=== PATIENT | female | born 1960 | race Caucasian/White ===

== ENCOUNTER 2022-09-13 16:17 | Inpatient (IN) | payer MEDICAID, OTHER ==
[2022-09-13] MEDS ORDERED: Ipratropium/Albuterol 3 ML NEB NEB PRN (16:55)
[2022-09-13] MEDS ORDERED: Ondansetron PF 4 MG/2 ML Vial IVP PRN (16:55)
[2022-09-13] MEDS ORDERED: Dextrose 5% in Water 1,000 ML IV PRN (16:55)
[2022-09-13] MEDS ORDERED: Morphine 2 MG/ML VIAL SLOW IVP PRN (16:55)
[2022-09-13] MEDS ORDERED: Dextrose 50% Abboject 50 ML SYRINGE SLOW IVP PRN (16:55)
[2022-09-13 17:24] LABS: #Eosinphils 0.1 thou/uL (0.0-0.7); #Lymphocytes 1.6 thou/uL (1.20-3.40); #Monocytes 0.4 thou/uL (0.11-0.59); #Neutrophils 8.4 thou/uL (1.40-6.50); %Basophils 0.2 % (0.0-1.0); %Eosinophils 1.2 % (0.0-10.0); %Lymphocytes 15.5 % (21.0-51.0); %Monocytes 3.5 % (0.0-10.0); %Neutrophils 79.7 % (42.0-75.0); Hemoglobin 14.8 g/dL (12.0-16.0); Mean Corpuscular HGB CONC 33.2 g/dL (32.0-36.0); Mean Corpuscular Hemoglobin 30.3 pg (27.0-31.0); Mean Platelet Volume 10.5 fL (7.4-10.4); Platelet Count 134 10x3/uL (130-400); RBC Distribution Width 12.9 % (11.5-14.5); Red Blood Cell (RBC) Count 4.88 mill/uL (4.20-5.40); White Blood Cell (WBC) Count 10.5 10x3/uL (4.8-10.8)
[2022-09-13 17:37] LABS: INR-International Normal Ratio 0.9; Prothrombin Time 12.9 sec (12.0-14.7)
[2022-09-13 17:46] LABS: ALT (SGPT) 20 U/L (8-55); AST (SGOT) 11 U/L (5-34); Albumin 4.2 g/dL (3.4-4.8); Alkaline Phosphatase 91 U/L (40-110); Anion Gap 14 mmol/L (10-20); BUN (Urea Nitrogen) 20 mg/dL (9.8-20.1); Bilirubin, Total 0.4 mg/dL (0.2-1.2); Calc. Creatinine Clearance 0 mL/min (70-130); Calcium 9.2 mg/dL (7.8-10.44); Carbon Dioxide 22 mmol/L (23-31); Chloride 107 mmol/L (98-107); Estimated GFR 87; Globulin 2.7 g/dL (2.4-3.5); Glucose 256 mg/dL (80-115); Potassium 3.9 mmol/L (3.5-5.1); Protein, Total 6.9 g/dL (5.8-8.1); Sodium 139 mmol/L (136-145)
[2022-09-13] MEDS ORDERED: Metoprolol Tartrate 50 MG TAB PO SCH (18:30)
[2022-09-13] MEDS ORDERED: hydrALAZINE 20 MG/ML VIAL SLOW IVP PRN (18:30)
[2022-09-13] MEDS ORDERED: Ibuprofen 800 MG TAB PO PRN (18:35)
[2022-09-13] MEDS: Albuterol 200 PUFF (6.7GM INHALER) INH SCH (19:00)
[2022-09-13] MEDS: Sodium Chloride 0.9% 1,000 ML IV SCH (20:20)
[2022-09-13] MEDS: Famotidine/PF 20 mg/2ml Vial SLOW IVP SCH (23:14)
[2022-09-13] MEDS: Acetaminophen 500 MG TAB PO SCH (23:14)
[2022-09-13] MEDS: Cyclobenzaprine 10 MG TAB PO PRN (23:15)
[2022-09-13] MEDS: Senokot S 8.6-50 MG TAB PO SCH (23:15)
[2022-09-13] MEDS: HumaLOG 300 UNITS/3 ML VIAL SC PRN (23:18)
[2022-09-13 23:42] VITALS: BMI 33.6
[2022-09-14] MEDS: Ipratropium Bromide 0.06% Nasal Inhaler 15ml EA NARE SCH ×3 (01:04→17:42)
[2022-09-14] MEDS: Acetaminophen 500 MG TAB PO SCH ×4 (01:05→17:32)
[2022-09-14] MEDS: Sodium Chloride 0.9% 1,000 ML IV SCH ×3 (03:26→17:42)
[2022-09-14 06:05] LABS: #Eosinphils 0.1 thou/uL (0.0-0.7); #Lymphocytes 1.7 thou/uL (1.20-3.40); #Monocytes 0.6 thou/uL (0.11-0.59); #Neutrophils 4.6 thou/uL (1.40-6.50); %Basophils 0.2 % (0.0-1.0); %Eosinophils 0.8 % (0.0-10.0); %Lymphocytes 23.9 % (21.0-51.0); %Monocytes 8.3 % (0.0-10.0); %Neutrophils 66.7 % (42.0-75.0); Hemoglobin 13.2 g/dL (12.0-16.0); Mean Corpuscular HGB CONC 33.2 g/dL (32.0-36.0); Mean Corpuscular Hemoglobin 30.4 pg (27.0-31.0); Mean Corpuscular Volume 91.6 fl (78.0-98.0); Mean Platelet Volume 10.7 fL (7.4-10.4); Platelet Count 131 10x3/uL (130-400); RBC Distribution Width 12.9 % (11.5-14.5); Red Blood Cell (RBC) Count 4.33 mill/uL (4.20-5.40); White Blood Cell (WBC) Count 6.9 10x3/uL (4.8-10.8)
[2022-09-14 06:21] LABS: PTT 29.1 sec (22.9-36.1); Prothrombin Time 13.9 sec (12.0-14.7)
[2022-09-14] MEDS: Albuterol 200 PUFF (6.7GM INHALER) INH SCH ×3 (07:17→18:46)
[2022-09-14 08:34] LABS: Anion Gap 12 mmol/L (10-20); BUN (Urea Nitrogen) 17 mg/dL (9.8-20.1); Calc. Creatinine Clearance 113 mL/min (70-130); Calcium 8.7 mg/dL (7.8-10.44); Carbon Dioxide 20 mmol/L (23-31); Chloride 110 mmol/L (98-107); Estimated GFR 80; Glucose 226 mg/dL (80-115); Magnesium 1.8 mg/dL (1.6-2.6); Phosphorus 3.3 mg/dL (2.3-4.7); Potassium 3.9 mmol/L (3.5-5.1); Sodium 138 mmol/L (136-145)
[2022-09-14] MEDS: Famotidine/PF 20 mg/2ml Vial SLOW IVP SCH ×2 (09:12→21:06)
[2022-09-14] MEDS: Polyethylene Glycol 3350 17 GM Packet PO SCH (09:12)
[2022-09-14] MEDS: Senokot S 8.6-50 MG TAB PO SCH ×2 (09:13→20:56)
[2022-09-14] MEDS ORDERED: Midazolam HCl 2 mg/2 ml Vial ONE (11:22)
[2022-09-14] MEDS ORDERED: HYDROmorphone 0.5 MG/0.5 ML SYRINGE ONE (11:22)
[2022-09-14] MEDS ORDERED: fentaNYL PF 100 MCG/2 ML SYRINGE ONE (11:22)
[2022-09-14] MEDS ORDERED: CEFAZOLIN 2 GM VIAL ONE (11:51)
[2022-09-14] MEDS ORDERED: Sodium Chloride 0.9% 100 ML ONE (11:51)
[2022-09-14] MEDS ORDERED: CEFAZOLIN 2 GM in Sodium Chloride 0.9% 100 ML IVPB SCH (12:00)
[2022-09-14] MEDS ORDERED: Dexamethasone 20 MG/5 ML VIAL ONE (12:01)
[2022-09-14] MEDS ORDERED: NEOSTIGMINE 3 MG/3 ML SYR 3 MG/3 ML SYRINGE ONE (12:01)
[2022-09-14] MEDS ORDERED: Phenylephrine 10 MG/ML VIAL ONE (12:01)
[2022-09-14] MEDS ORDERED: PROPOFOL 200 MG/20 ML VIAL ONE (12:01)
[2022-09-14] MEDS ORDERED: Rocuronium Bromide 10 MG/ML (10ML VIAL) ONE (12:01)
[2022-09-14] MEDS ORDERED: Ondansetron PF 4 MG/2 ML Vial ONE (12:01)
[2022-09-14] MEDS ORDERED: Lidocaine 1% PF 5 ML VIAL ONE (12:01)
[2022-09-14] MEDS ORDERED: GLYCOPYRROLATE/PF 0.2 MG/ML VIAL ONE (12:01)
[2022-09-14] MEDS ORDERED: Promethazine HCl 25 MG/ML VIAL IM PRN (12:27)
[2022-09-14] MEDS ORDERED: Ondansetron HCl/PF 4 MG/2 ML Vial IVP PRN (12:27)
[2022-09-14] MEDS ORDERED: Sevoflurane 250 ML INH ANEST BOTTLE ONE (13:34)
[2022-09-14] MEDS ORDERED: fentaNYL 50 mcg/mL 1 mL Vial ONE (14:07)
[2022-09-14] MEDS: HumaLOG 300 UNITS/3 ML VIAL SC PRN ×2 (17:32→21:29)
[2022-09-14] MEDS ORDERED: Ibuprofen 800 MG TAB PO PRN (20:48)
[2022-09-14] MEDS: CEFAZOLIN 2 GM in Sodium Chloride 0.9% 100 ML IVPB SCH (20:56)
[2022-09-14] MEDS: Cyclobenzaprine 10 MG TAB PO PRN (20:56)
[2022-09-14] MEDS: traMADol HCl 50 MG TAB PO PRN (20:57)
[2022-09-14] MEDS ORDERED: Insulin Glargine 30 UNITS/0.3 ML VIAL SC SCH (21:00)
[2022-09-15] MEDS: Ipratropium Bromide 0.06% Nasal Inhaler 15ml EA NARE SCH ×4 (00:09→21:22)
[2022-09-15] MEDS: Acetaminophen 500 MG TAB PO SCH ×4 (00:10→17:51)
[2022-09-15] MEDS: CEFAZOLIN 2 GM in Sodium Chloride 0.9% 100 ML IVPB SCH (04:56)
[2022-09-15] MEDS: Albuterol 200 PUFF (6.7GM INHALER) INH SCH ×3 (06:32→18:26)
[2022-09-15] MEDS ORDERED: Dextrose 5% in Water 1,000 ML IV PRN (06:37)
[2022-09-15] MEDS ORDERED: Dextrose 50% Abboject 50 ML SYRINGE SLOW IVP PRN (06:37)
[2022-09-15] MEDS ORDERED: Insulin Regular 300 UNITS/3 ML VIAL SC SCH (06:45)
[2022-09-15] MEDS: traMADol HCl 50 MG TAB PO PRN ×2 (06:49→14:12)
[2022-09-15 07:02] LABS: #Lymphocytes 1.1 thou/uL (1.20-3.40); #Monocytes 0.5 thou/uL (0.11-0.59); %Basophils 0.2 % (0.0-1.0); %Eosinophils 0.1 % (0.0-10.0); %Lymphocytes 14.4 % (21.0-51.0); %Monocytes 6.5 % (0.0-10.0); %Neutrophils 78.8 % (42.0-75.0); Hemoglobin 8.6 g/dL (12.0-16.0); Mean Corpuscular HGB CONC 32.7 g/dL (32.0-36.0); Mean Corpuscular Hemoglobin 30.2 pg (27.0-31.0); Mean Corpuscular Volume 92.5 fl (78.0-98.0); Platelet Count 104 10x3/uL (130-400); RBC Distribution Width 12.9 % (11.5-14.5); Red Blood Cell (RBC) Count 2.83 mill/uL (4.20-5.40); White Blood Cell (WBC) Count 7.7 10x3/uL (4.8-10.8)
[2022-09-15 07:14] LABS: ALT (SGPT) 123 U/L (8-55); AST (SGOT) 69 U/L (5-34); Alkaline Phosphatase 78 U/L (40-110); Anion Gap 12 mmol/L (10-20); BUN (Urea Nitrogen) 24 mg/dL (9.8-20.1); Bilirubin, Total 0.3 mg/dL (0.2-1.2); Calc. Creatinine Clearance 83 mL/min (70-130); Calcium 7.6 mg/dL (7.8-10.44); Carbon Dioxide 19 mmol/L (23-31); Chloride 108 mmol/L (98-107); Estimated GFR 55; Globulin 2.1 g/dL (2.4-3.5); Glucose 332 mg/dL (80-115); Magnesium 1.8 mg/dL (1.6-2.6); Potassium 4.5 mmol/L (3.5-5.1); Protein, Total 5.1 g/dL (5.8-8.1); Sodium 134 mmol/L (136-145)
[2022-09-15] MEDS ORDERED: Amlodipine 5 MG TAB PO SCH (09:00)
[2022-09-15] MEDS ORDERED: Lisinopril/Hydrochlorothiazide 20/25 mg Tablet PO SCH (09:00)
[2022-09-15] MEDS ORDERED: Aspirin 81 mg Enteric Coated Tablet PO SCH (09:00)
[2022-09-15] MEDS: Atorvastatin Calcium 40 MG TAB PO SCH (09:33)
[2022-09-15] MEDS: Senokot S 8.6-50 MG TAB PO SCH ×2 (09:33→21:23)
[2022-09-15] MEDS: Insulin Glargine 30 UNITS/0.3 ML VIAL SC SCH ×2 (09:33→21:23)
[2022-09-15] MEDS: Polyethylene Glycol 3350 17 GM Packet PO SCH (09:33)
[2022-09-15] MEDS: Famotidine/PF 20 mg/2ml Vial SLOW IVP SCH ×2 (09:33→21:22)
[2022-09-15] MEDS: HumaLOG 300 UNITS/3 ML VIAL SC PRN ×3 (11:20→21:31)
[2022-09-16] MEDS: Acetaminophen 500 MG TAB PO SCH ×4 (05:36→17:26)
[2022-09-16 06:07] LABS: #Eosinphils 0.2 thou/uL (0.0-0.7); #Monocytes 0.2 thou/uL (0.11-0.59); #Neutrophils 4.2 thou/uL (1.40-6.50); %Basophils 0.2 % (0.0-1.0); %Eosinophils 3.5 % (0.0-10.0); %Lymphocytes 17.4 % (21.0-51.0); %Monocytes 3.8 % (0.0-10.0); Hemoglobin 9.1 g/dL (12.0-16.0); Mean Corpuscular HGB CONC 32.5 g/dL (32.0-36.0); Mean Corpuscular Hemoglobin 29.9 pg (27.0-31.0); Mean Platelet Volume 10.4 fL (7.4-10.4); Platelet Count 106 10x3/uL (130-400); RBC Distribution Width 13.1 % (11.5-14.5); Red Blood Cell (RBC) Count 3.03 mill/uL (4.20-5.40); White Blood Cell (WBC) Count 5.6 10x3/uL (4.8-10.8)
[2022-09-16 06:27] LABS: Anion Gap 11 mmol/L (10-20); BUN (Urea Nitrogen) 24 mg/dL (9.8-20.1); Calc. Creatinine Clearance 109 mL/min (70-130); Calcium 8.2 mg/dL (7.8-10.44); Carbon Dioxide 21 mmol/L (23-31); Chloride 108 mmol/L (98-107); Estimated GFR 76; Glucose 183 mg/dL (80-115); Phosphorus 2.5 mg/dL (2.3-4.7); Potassium 4.4 mmol/L (3.5-5.1); Sodium 136 mmol/L (136-145)
[2022-09-16] MEDS: Albuterol 200 PUFF (6.7GM INHALER) INH SCH ×3 (07:01→19:45)
[2022-09-16] MEDS: Atorvastatin Calcium 40 MG TAB PO SCH (08:46)
[2022-09-16] MEDS: metFORMIN 500 MG TAB PO SCH (08:46)
[2022-09-16] MEDS: Senokot S 8.6-50 MG TAB PO SCH ×2 (08:46→20:52)
[2022-09-16] MEDS: Aspirin 81 mg Enteric Coated Tablet PO SCH ×2 (08:46→20:51)
[2022-09-16] MEDS: Famotidine/PF 20 mg/2ml Vial SLOW IVP SCH (08:47)
[2022-09-16] MEDS: Ipratropium Bromide 0.06% Nasal Inhaler 15ml EA NARE SCH ×3 (08:47→20:52)
[2022-09-16] MEDS: Polyethylene Glycol 3350 17 GM Packet PO SCH (08:47)
[2022-09-16] MEDS: Insulin Glargine 30 UNITS/0.3 ML VIAL SC SCH ×2 (08:47→20:53)
[2022-09-16] MEDS: HumaLOG 300 UNITS/3 ML VIAL SC PRN ×2 (12:22→17:26)
[2022-09-16] MEDS: Cyclobenzaprine 10 MG TAB PO PRN (13:43)
[2022-09-17] MEDS: Acetaminophen 500 MG TAB PO SCH ×5 (00:24→23:45)
[2022-09-17 05:57] LABS: #Eosinphils 0.2 thou/uL (0.0-0.7); #Lymphocytes 0.8 thou/uL (1.20-3.40); #Monocytes 0.2 thou/uL (0.11-0.59); #Neutrophils 3.6 thou/uL (1.40-6.50); %Basophils 0.2 % (0.0-1.0); %Eosinophils 3.2 % (0.0-10.0); %Monocytes 4.4 % (0.0-10.0); %Neutrophils 75.2 % (42.0-75.0); Hemoglobin 8.7 g/dL (12.0-16.0); Mean Corpuscular HGB CONC 32.3 g/dL (32.0-36.0); Mean Corpuscular Hemoglobin 29.7 pg (27.0-31.0); Mean Corpuscular Volume 92.1 fl (78.0-98.0); Mean Platelet Volume 10.2 fL (7.4-10.4); Platelet Count 115 10x3/uL (130-400); RBC Distribution Width 13.2 % (11.5-14.5); Red Blood Cell (RBC) Count 2.93 mill/uL (4.20-5.40); White Blood Cell (WBC) Count 4.8 10x3/uL (4.8-10.8)
[2022-09-17 06:16] LABS: Anion Gap 11 mmol/L (10-20); BUN (Urea Nitrogen) 20 mg/dL (9.8-20.1); Calc. Creatinine Clearance 121 mL/min (70-130); Calcium 8.4 mg/dL (7.8-10.44); Carbon Dioxide 23 mmol/L (23-31); Chloride 107 mmol/L (98-107); Estimated GFR 86; Glucose 159 mg/dL (80-115); Phosphorus 2.8 mg/dL (2.3-4.7); Potassium 4.2 mmol/L (3.5-5.1); Sodium 137 mmol/L (136-145)
[2022-09-17] MEDS: Albuterol 200 PUFF (6.7GM INHALER) INH SCH ×3 (07:21→22:25)
[2022-09-17] MEDS ORDERED: PHOS-NAK 1 PKT PACK PO SCH (08:00)
[2022-09-17] MEDS: Senokot S 8.6-50 MG TAB PO SCH ×2 (09:20→21:16)
[2022-09-17] MEDS: Aspirin 81 mg Enteric Coated Tablet PO SCH ×2 (09:20→21:09)
[2022-09-17] MEDS: Insulin Glargine 30 UNITS/0.3 ML VIAL SC SCH ×2 (09:20→21:09)
[2022-09-17] MEDS: Atorvastatin Calcium 40 MG TAB PO SCH (09:20)
[2022-09-17] MEDS: metFORMIN 500 MG TAB PO SCH (09:20)
[2022-09-17] MEDS: Polyethylene Glycol 3350 17 GM Packet PO SCH (09:21)
[2022-09-17] MEDS: Ipratropium Bromide 0.06% Nasal Inhaler 15ml EA NARE SCH ×3 (09:55→21:16)
[2022-09-17] MEDS: HumaLOG 300 UNITS/3 ML VIAL SC PRN ×2 (12:00→21:12)
[2022-09-17] MEDS: traMADol HCl 50 MG TAB PO PRN (16:12)
[2022-09-17] MEDS: Cyclobenzaprine 10 MG TAB PO PRN (21:07)
[2022-09-18] MEDS: Acetaminophen 500 MG TAB PO SCH ×3 (06:07→17:51)
[2022-09-18] MEDS: Albuterol 200 PUFF (6.7GM INHALER) INH SCH ×3 (06:55→19:57)
[2022-09-18] MEDS: metFORMIN 500 MG TAB PO SCH (09:37)
[2022-09-18] MEDS: Aspirin 81 mg Enteric Coated Tablet PO SCH ×2 (09:37→21:23)
[2022-09-18] MEDS: Insulin Glargine 30 UNITS/0.3 ML VIAL SC SCH ×2 (09:38→21:22)
[2022-09-18] MEDS: Atorvastatin Calcium 40 MG TAB PO SCH (09:38)
[2022-09-18] MEDS: Senokot S 8.6-50 MG TAB PO SCH ×2 (09:39→21:31)
[2022-09-18] MEDS: Polyethylene Glycol 3350 17 GM Packet PO SCH (09:39)
[2022-09-18] MEDS: Ipratropium Bromide 0.06% Nasal Inhaler 15ml EA NARE SCH ×3 (09:40→21:22)
[2022-09-18] MEDS: traMADol HCl 50 MG TAB PO PRN ×2 (09:43→21:23)
[2022-09-18] MEDS: Cyclobenzaprine 10 MG TAB PO PRN (21:23)
[2022-09-19] MEDS: Acetaminophen 500 MG TAB PO SCH ×4 (00:55→17:58)
[2022-09-19] MEDS: Albuterol 200 PUFF (6.7GM INHALER) INH SCH ×3 (07:09→19:10)
[2022-09-19] MEDS: Ipratropium Bromide 0.06% Nasal Inhaler 15ml EA NARE SCH ×3 (08:47→21:29)
[2022-09-19] MEDS: metFORMIN 500 MG TAB PO SCH (08:48)
[2022-09-19] MEDS: Aspirin 81 mg Enteric Coated Tablet PO SCH ×2 (08:48→21:27)
[2022-09-19] MEDS: Atorvastatin Calcium 40 MG TAB PO SCH (08:48)
[2022-09-19] MEDS: Senokot S 8.6-50 MG TAB PO SCH ×2 (08:50→21:29)
[2022-09-19] MEDS: Polyethylene Glycol 3350 17 GM Packet PO SCH (08:50)
[2022-09-19] MEDS: Insulin Glargine 30 UNITS/0.3 ML VIAL SC SCH ×2 (09:27→21:27)
[2022-09-19] MEDS: Cyclobenzaprine 10 MG TAB PO PRN (21:26)
[2022-09-20] MEDS: Acetaminophen 500 MG TAB PO SCH ×4 (00:47→17:33)
[2022-09-20] MEDS: HumaLOG 300 UNITS/3 ML VIAL SC PRN (05:47)
[2022-09-20] MEDS: Albuterol 200 PUFF (6.7GM INHALER) INH SCH ×3 (08:29→18:10)
[2022-09-20] MEDS: Aspirin 81 mg Enteric Coated Tablet PO SCH ×2 (09:18→20:42)
[2022-09-20] MEDS: metFORMIN 500 MG TAB PO SCH (09:19)
[2022-09-20] MEDS: Atorvastatin Calcium 40 MG TAB PO SCH (09:19)
[2022-09-20] MEDS: Insulin Glargine 30 UNITS/0.3 ML VIAL SC SCH ×2 (09:19→20:41)
[2022-09-20] MEDS: Ipratropium Bromide 0.06% Nasal Inhaler 15ml EA NARE SCH ×3 (09:24→20:43)
[2022-09-20] MEDS: Senokot S 8.6-50 MG TAB PO SCH ×2 (09:25→20:43)
[2022-09-20] MEDS: Polyethylene Glycol 3350 17 GM Packet PO SCH (09:25)
[2022-09-21] MEDS: Acetaminophen 500 MG TAB PO SCH ×5 (00:10→23:52)
[2022-09-21] MEDS: Albuterol 200 PUFF (6.7GM INHALER) INH SCH ×3 (07:05→19:04)
[2022-09-21] MEDS: metFORMIN 500 MG TAB PO SCH (08:31)
[2022-09-21] MEDS: Aspirin 81 mg Enteric Coated Tablet PO SCH ×2 (08:31→22:17)
[2022-09-21] MEDS: Insulin Glargine 30 UNITS/0.3 ML VIAL SC SCH ×2 (08:31→22:17)
[2022-09-21] MEDS: Atorvastatin Calcium 40 MG TAB PO SCH (08:31)
[2022-09-21] MEDS: Ipratropium Bromide 0.06% Nasal Inhaler 15ml EA NARE SCH ×3 (08:34→22:19)
[2022-09-21] MEDS: Polyethylene Glycol 3350 17 GM Packet PO SCH (08:34)
[2022-09-21] MEDS: Senokot S 8.6-50 MG TAB PO SCH ×2 (08:34→22:18)
[2022-09-21] MEDS: Cyclobenzaprine 10 MG TAB PO PRN (22:18)
[2022-09-22] MEDS ORDERED: Sevoflurane 250 ML INH ANEST BOTTLE ONE (04:57)
[2022-09-22] MEDS: Acetaminophen 500 MG TAB PO SCH ×2 (05:58→12:30)
[2022-09-22] MEDS: Albuterol 200 PUFF (6.7GM INHALER) INH SCH ×3 (07:11→19:01)
[2022-09-22] MEDS: Insulin Glargine 30 UNITS/0.3 ML VIAL SC SCH (07:56)
[2022-09-22] MEDS: Aspirin 81 mg Enteric Coated Tablet PO SCH (07:57)
[2022-09-22] MEDS: metFORMIN 500 MG TAB PO SCH (07:58)
[2022-09-22] MEDS: Atorvastatin Calcium 40 MG TAB PO SCH (07:58)
[2022-09-22] MEDS: Polyethylene Glycol 3350 17 GM Packet PO SCH (07:59)
[2022-09-22] MEDS: Senokot S 8.6-50 MG TAB PO SCH (09:07)
[2022-09-22 16:34] VITALS: BP 167/80; TEMP 97.9
== END 2022-09-22 19:13 | disposition home or self-care (01) | DRG 481 ==
LOC: ERS 16:17 → SURG B 16:55
PROVIDERS: ADMIT Surgery; ATTEND Surgery
PROC: 0QS704Z Reposition Left Upper Femur with Internal Fixation Device, Open Approach (ICD-10-PCS; principal; 2022-09-14)
PROC: 30233N1 Transfusion of Nonautologous Red Blood Cells into Peripheral Vein, Percutaneous Approach (ICD-10-PCS; 2022-09-15)
DX: S72.142A Displaced intertrochanteric fracture of left femur, initial encounter for closed fracture (principal); D62 Acute posthemorrhagic anemia; N17.9 Acute kidney failure, unspecified; S72.22XA Displaced subtrochanteric fracture of left femur, initial encounter for closed fracture; I10 Essential (primary) hypertension; E78.5 Hyperlipidemia, unspecified; J44.9 Chronic obstructive pulmonary disease, unspecified; E11.9 Type 2 diabetes mellitus without complications; D64.9 Anemia, unspecified; E66.9 Obesity, unspecified; W18.39XA Other fall on same level, initial encounter; Y92.000 Kitchen of unspecified non-institutional (private) residence as the place of occurrence of the external cause; Z68.33 Body mass index [BMI] 33.0-33.9, adult; Z79.899 Other long term (current) drug therapy; Z79.4 Long term (current) use of insulin; Z98.51 Tubal ligation status; Z90.49 Acquired absence of other specified parts of digestive tract; Z90.710 Acquired absence of both cervix and uterus; Z87.891 Personal history of nicotine dependence
CPT/HCPCS: 36415; 36416; 36430; 71045; 72170; 80048; 80053; 83735; 84100; 85025; 85610; 85730; 86850; 86900; 86901; 93005; C1713; G0390; J0360; J1100; J1170; J1815; J2250; J2272; J2370; J2405; J2704; J3010; J3490; J7050; P9016; S0028